=== PATIENT | male | born 1995 | race Caucasian/White ===

== ENCOUNTER 2017-07-15 18:19 | Emergency (ER) | payer SELFPAY ==
[2017-07-15] MEDS ORDERED: PREDNISONE 20 MG TABLET PO ONE (19:14)
[2017-07-15] MEDS ORDERED: ALBUTEROL SULFATE 0.042% NEB (1.25 MG/3 ML) AMPUL NEB ONE (19:14)
--- NOTE | 2017-07-15 19:21 | ER Document Report ---
ED General - General Chief Complaint: Shortness Of Breath Stated Complaint: SHORTNESS OF BREATH Time Seen by Provider: 07/15/17 19:14 Notes: Chief complaint: Wheezing History of complain:( obtained from----patient) 22 years old male with a history of asthma, presents today with wheezing for the last few days. According to him he has a new dog, this triggered asthma attack again. He has no inhalers at home. Denies any fever chills or other constitutional symptoms. Onset: Gradual Duration: Last 2 days Severity: Mild to moderate Quality: Wheezing Context: Allergic to environmental allergens Exacerbating factor and relieving factors: REVIEW OF SYSTEMS: CONSTITUTIONAL : Denies fever, chills, or sweats. Denies recent illness. EENT: Denies eye, ear, throat, or mouth pain or symptoms. Denies nasal or sinus congestion or discharge. Denies throat, tongue, or mouth swelling or difficulty swallowing. CARDIOVASCULAR: Denies chest pain. Denies palpitations or racing or irregular heart beat. Denies ankle edema. RESPIRATORY: Denies cough, cold, or chest congestion. GASTROINTESTINAL: Denies distention. Denies nausea, vomiting, or diarrhea. Denies blood in vomitus, stools, or per rectum. Denies black, tarry stools. Denies constipation. GENITOURINARY: Denies difficulty urinating, painful urination, burning, frequency, blood in urine, or discharge. FEMALE GENITOURINARY: Denies vaginal bleeding, heavy or abnormal periods, irregular periods. Denies vaginal discharge or odor. MUSCULOSKELETAL: Denies back or neck pain or stiffness. Denies joint pain or swelling. SKIN: Denies rash, lesions or sores. HEMATOLOGIC : Denies easy bruising or bleeding. LYMPHATIC: Denies swollen, enlarged glands. NEUROLOGICAL: Denies confusion or altered mental status. Denies passing out or loss of consciousness. Denies dizziness or lightheadedness. Denies headache. Denies weakness or paralysis or loss of use of either side. Denies problems with gait or speech. Denies sensory loss, numbness, or tingling. Denies seizures. PSYCHIATRIC: Denies anxiety or stress. Denies depression, suicidal ideation, or homicidal ideation. ALL OTHER SYSTEMS REVIEWED AND NEGATIVE. PHYSICAL EXAMINATION: GENERAL: Well-appearing, well-nourished and in no acute distress. HEAD: Atraumatic, normocephalic. EYES: Pupils equal round and reactive to light, extraocular movements intact, conjunctiva are normal. ENT: Nares patent, oropharynx clear without exudates. Moist mucous membranes. NECK: Normal range of motion, supple without lymphadenopathy LUNGS: Bilaterally decreased breath sounds with diffuse expiratory wheezing throughout the lung field which is mild to moderate. HEART: Regular rate and rhythm without murmurs ABDOMEN: Soft, nontender, nondistended abdomen. No guarding, no rebound. No masses appreciated. Examination of genitals-deferred Musculoskeletal: Normal range of motion, no pitting or edema. No cyanosis. NEUROLOGICAL: Cranial nerves grossly intact. Normal speech, normal gait. Normal sensory, motor exams PSYCH: Normal mood, normal affect. SKIN: Warm, Dry, normal turgor, no rashes or lesions noted. Dictation was performed using [employer] voice recognition software TRAVEL OUTSIDE OF THE [place] IN LAST 30 DAYS: No - Related Data Allergies/Adverse Reactions: No Known Allergies Allergy (Verified 07/15/17 19:04) Past Medical History - Social History Smoking Status: Current Some Day Smoker Cigarette use (# per day): No Chew tobacco use (# tins/day): No Frequency of alcohol use: Occasional Drug Abuse: None Family History: Reviewed & Not Pertinent Patient has suicidal ideation: No Patient has homicidal ideation: No Renal/ Medical History: Denies: Hx Peritoneal Dialysis Review of Systems - Review of Systems Notes: Dictated Physical Exam - Vital signs Vitals: Temp Pulse Resp BP Pulse Ox 98.5 F 95 16 120/76 98 07/15/17 18:51 07/15/17 18:51 07/15/17 18:51 07/15/17 18:51 07/15/17 18:51 - Notes Notes: Dictated Course - Re-evaluation Re-evalutation: 07/15/17 19:17 Treated with albuterol and prednisone with clinical improvement discharge home - Vital Signs Vital signs: Temp Pulse Resp BP Pulse Ox 98.5 F 95 16 120/76 98 07/15/17 18:51 07/15/17 18:51 07/15/17 18:51 07/15/17 18:51 07/15/17 18:51 Discharge - Discharge Clinical Impression: Exacerbation of asthma Qualifiers: Asthma severity: moderate Asthma persistence: unspecified Qualified Code(s): J45.901 - Unspecified asthma with (acute) exacerbation Condition: Fair Disposition: HOME, SELF-CARE Instructions: Asthma ([facility]) Prescriptions: Albuterol Sulfate [Ventolin HFA MDI 18 GM] 1 - 2 puff IH Q4H PRN #1 mdi PRN Reason: Fluticasone Propionate [Flovent HFA 220 mcg MDI] 2 puff IH BID #1 mdi Magnesium Oxide [Magnesium] 500 mg PO TID #90 capsule Prednisone [Sterapred Ds] 1 pkg PO ASDIR PRN 12 Days [email or web address] PRN Reason:
[2017-07-15 20:33] VITALS: BP 125/76
== END 2017-07-15 20:32 | disposition home or self-care (01) ==
LOC: ER 18:19
DX: J45.901 Unspecified asthma with (acute) exacerbation (principal); F17.200 Nicotine dependence, unspecified, uncomplicated
CPT/HCPCS: 94640; 99284; J3490; J7512

== ENCOUNTER 2017-08-13 02:49 | Emergency (ER) | payer SELFPAY ==
[2017-08-13] MEDS ORDERED: ERYTHROMYCIN 0.5% OPH OINTMENT 3.5 GM (ER DISP) OS PRN (04:51)
--- NOTE | 2017-08-13 04:58 | ER Document Report ---
ED Eye Complaint - General Chief Complaint: Eye Problem Stated Complaint: EYE SWELLING Time Seen by Provider: 08/13/17 03:54 Mode of Arrival: Ambulatory Information source: Patient Notes: Otherwise healthy 22-year-old male presenting with complaint of "stye" to his left eye. Patient reports that he had the same problem in his right eye approximately 1 month ago. Patient denies any change in his vision. Patient denies any pain in the eye. Patient only reports that his upper eyelid is painful and itchy. TRAVEL OUTSIDE OF THE [place] IN LAST 30 DAYS: No - Related Data Allergies/Adverse Reactions: No Known Allergies Allergy (Verified 07/15/17 19:04) Past Medical History - General Information source: Patient - Social History Smoking Status: Current Some Day Smoker Chew tobacco use (# tins/day): No Frequency of alcohol use: None Drug Abuse: None Family History: Reviewed & Not Pertinent Patient has suicidal ideation: No Patient has homicidal ideation: No - Medical History Medical History: Negative Renal/ Medical History: Denies: Hx Peritoneal Dialysis Surgical Hx: Negative - Immunizations Immunizations up to date: Yes Review of Systems - Review of Systems Constitutional: No symptoms reported EENT: See HPI Cardiovascular: No symptoms reported Respiratory: No symptoms reported Gastrointestinal: No symptoms reported Genitourinary: No symptoms reported Male Genitourinary: No symptoms reported Musculoskeletal: No symptoms reported Skin: No symptoms reported Hematologic/Lymphatic: No symptoms reported Neurological/Psychological: No symptoms reported Physical Exam - Vital signs Vitals: Temp Pulse Resp BP Pulse Ox 98.0 F 102 H 18 120/78 98 08/13/17 02:59 08/13/17 02:59 08/13/17 02:59 08/13/17 02:59 08/13/17 02:59 - Notes Notes: PHYSICAL EXAMINATION: GENERAL: Well-appearing, well-nourished and in no acute distress. HEAD: Atraumatic, normocephalic. EYES: Pupils equal round and reactive to light, extraocular movements intact, sclera anicteric, conjunctiva normal to right, slight erythema to left. Left eye examined with flourescein and wills lamp. The is no uptake of flourescein, no corneal abrasion noted. Left eyelid eyrthemous, tender and swollen. ENT: Nares patent, oropharynx clear without exudates. Moist mucous membranes. NECK: Normal range of motion, supple without lymphadenopathy LUNGS: Breath sounds clear to auscultation bilaterally and equal. No wheezes rales or rhonchi. HEART: Regular rate and rhythm without murmurs ABDOMEN: Soft, nontender, nondistended abdomen. No guarding, no rebound. No masses appreciated. Musculoskeletal: Normal range of motion, no pitting or edema. No cyanosis. NEUROLOGICAL: Cranial nerves grossly intact. Normal speech, normal gait. Normal sensory, motor exams PSYCH: Normal mood, normal affect. SKIN: Warm, Dry, normal turgor, no rashes or lesions noted. - HEENT Visual acuity- Right eye: 20/25 Visual acuity- Left eye: 20/40 Visual acuity- Both eyes: 20/25 Corrective lenses worn: No Course - Re-evaluation Re-evalutation: Patient's examination consistent with hordeolum. There is no evidence of any corneal abrasion. Visual acuity was done by PCT and is documented. Patient does not have any actual pain in the eye itself, only tenderness to the upper eyelid on the left side. Patient will be treated with erythromycin ointment. Patient agrees with this plan of care. - Vital Signs Vital signs: Temp Pulse Resp BP Pulse Ox 97.9 F 54 L 13 113/77 100 08/13/17 05:12 08/13/17 05:12 08/13/17 05:12 08/13/17 05:12 08/13/17 05:12 Discharge - Discharge Clinical Impression: Hordeolum external Qualifiers: Laterality: left Eyelid: upper Qualified Code(s): H00.014 - Hordeolum externum left upper eyelid Condition: Stable Disposition: HOME, SELF-CARE Additional Instructions: Sty Your examination reveals that you have a sty. This is an infection of a hair follicle in the eyelid. As the infection progresses, it forms an abscess along the edge of the eyelid. A sty causes a lot of swelling and tenderness. As the body fights the infection, a lump forms. The knot slowly goes away over a couple of weeks. Treatment includes applying warm compresses to the eye for 10 to 15 minutes every two or three hours. Usually, the infection will drain from the abscess spontaneously, however, some sties require surgical drainage. You may be given antibiotic eye drops to prevent the infection from spreading to the surface of the eye. If the doctor is concerned that the infection is severe, you may be given antibiotics by mouth or shot. Call the doctor at once if vision decreases, if swelling becomes severe, or if eye pain becomes severe. See the doctor for follow-up should you fail to improve as expected. Please use the erythromycin ointment to the effected eye 4 times per day for 14 days, then at night only. Please return to the emergency department if you develop pain in your eye or any visual disturbances. Referrals: [facility]AL[facility],NO [Primary Care Provider] - Follow up as needed
[2017-08-13 05:15] VITALS: BP 113/77
== END 2017-08-13 05:15 | disposition home or self-care (01) ==
LOC: ER 02:49
DX: H00.014 Hordeolum externum left upper eyelid (principal); F17.200 Nicotine dependence, unspecified, uncomplicated
CPT/HCPCS: 99283